=== PATIENT | male | born 1950 | race Caucasian/White ===

== ENCOUNTER 2017-08-04 05:53 | Day surgery (SDC) | payer OTHER, MEDICARE ==
[2017-08-04] MEDS ORDERED: ceFAZolin 2 GM/SWFI 2 GM/20 ML SYR IVP ONE (06:00)
[2017-08-04] MEDS ORDERED: LIDOCAINE 1% 2 ML INJ ID PRN (06:03)
[2017-08-04] MEDS ORDERED: LR 1,000 ML IV ONE (06:03)
[2017-08-04] MEDS ORDERED: PROPOFOL 200 MG/20 ML VIAL ONE ×2 (07:07)
[2017-08-04] MEDS ORDERED: fentaNYL 250 MCG/5 ML INJ ONE (07:07)
[2017-08-04] MEDS ORDERED: BUPIVACAINE/EPI 0.5% 30 ML SDV ONE (07:07)
[2017-08-04] MEDS ORDERED: DEXAMETHASONE 4 MG/ML VIAL ONE (07:11)
[2017-08-04] MEDS ORDERED: MIDAZOLAM 2 MG/2 ML VIAL IVP ONE (07:11)
[2017-08-04] MEDS ORDERED: SUGAMMADEX SODIUM 200 MG/2 ML VIAL IVP ONE (07:11)
[2017-08-04] MEDS ORDERED: ONDANSETRON 4 MG/2 ML VIAL ONE (07:11)
--- NOTE | 2017-08-04 07:13 | PDHPUP ---
History & Physical Update H&P update statement: This history and physical update is based on an assessment of the patient which was completed after admission or registration (within 24 hours), but prior to the surgery/procedure. H&P update: H&P reviewed & patient examined, no change in patient's condition since H&P completed
--- NOTE | 2017-08-04 07:22 | PDANEPAE ---
ANE History of Present Illness left inguinal hernia ANE Past Medical History - Cardiovascular History Hx Hypertension: No Hx Arrhythmias: No Hx Chest Pain: No Hx Coronary Artery / Peripheral Vascular Disease: No Hx CHF / Valvular Disease: No Hx Palpitations: No - Pulmonary History Hx COPD: No Hx Asthma/Reactive Airway Disease: No Hx Recent Upper Respiratory Infection: No Hx Oxygen in Use at Home: No Hx Sleep Apnea: No Sleep Apnea Screening Result - Last Documented: Negative - Neurologic History Hx Cerebrovascular Accident: No Hx Seizures: No Hx Dementia: No Neurologic History Comment: Strong family Hx of CVA, no personal Hx - Endocrine History Hx Diabetes: No - Renal History Hx Renal Disorders: No Renal History Comment: Kidney stones X 2 in 2004 and 2010 - Liver History Hx Hepatic Disorders: No - Neurological & Psychiatric Hx Hx Neurological and Psychiatric Disorders: No - Cancer History Hx Cancer: No - Congenital Disorder History Hx Congenital Disorders: No - GI History Hx Gastrointestinal Disorders: No - Other Health History Other Health History: Osteoarthritis in knees - Surgical History Prior Surgeries: appendectomy 2013. TURP 2011 ANE Review of Systems Review of Systems: - Exercise capacity METS (RN): 6 METS ANE Patient History - Allergies Allergies/Adverse Reactions: No Known Allergies Allergy (Unverified 11/19/13 10:24) - Home Medications Home medications: home medication list seen and reviewed Home Medications: Cholecalciferol (Vitamin D3) [Vitamin D3] 2,000 unit PO DAILY 11/19/13 [Last Taken 08/03/17 07:00] Magnesium Oxide [Magnesium Oxide 400 mg (OTC)] 400 mg PO DAILY 11/19/13 [Last Taken 08/03/17 07:00] RX: Herbals/Supplements -Info Only 1 each PO AD 11/19/13 [Last Taken 08/03/17 07 :00] Coq-10 08/03/17 [Last Taken 08/03/17 07:00] Fish Oil 1,000 mg Capsule 08/03/17 [Last Taken 08/03/17 0700] - NPO status NPO Since - Liquids (Date): 08/03/17 NPO Since - Liquids (Time): 20:00 NPO Since - Solids (Date): 08/03/17 NPO Since - Solids (Time): 18:00 - Smoking Hx Smoking Status: Former smoker - Family Anes Hx Family Hx Anesthesia Complications: NA ANE Labs/Vital Signs - Vital Signs Blood Pressure: 122/83 Heart Rate: 65 Respiratory Rate: 18 O2 Sat (%): 93 Height: 185.42 cm Weight: 97.069 kg ANE Physical Exam - Airway Neck exam: FROM Mallampati Score: Class 1 Mouth exam: normal dental/mouth exam - Pulmonary Pulmonary: no respiratory distress - Cardiovascular Cardiovascular: regular rate and rhythym - ASA Status ASA Status: II ANE Anesthesia Plan Anesthesia Plan: general endotracheal anesthesia
[2017-08-04] MEDS ORDERED: LR 500 ML IV PRN (08:14)
[2017-08-04] MEDS ORDERED: NALOXONE HCL 0.4 MG/ML INJ IVP PRN (08:14)
[2017-08-04] MEDS ORDERED: HYDROmorphONE/DILAUDID 1 MG/ML INJ IVP PRN (08:14)
[2017-08-04] MEDS ORDERED: HYDROCODONE/APAP 5/325 TAB PO PRN (08:14)
[2017-08-04] MEDS ORDERED: fentaNYL 100 MCG/2 ML INJ IVP PRN (08:14)
[2017-08-04] MEDS ORDERED: ONDANSETRON 4 MG/2 ML VIAL IVP PRN (08:14)
[2017-08-04] MEDS ORDERED: ACETAMINOPHEN 500 MG TAB PO PRN (08:14)
[2017-08-04] MEDS ORDERED: OXYCODONE/APAP 5/325 TAB PO PRN (08:14)
[2017-08-04] MEDS ORDERED: PROMETHAZINE HCL 25 MG/ML INJ IVP PRN (08:14)
[2017-08-04] MEDS ORDERED: ALBUTEROL 3 ML DEYVIAL IH PRN (08:14)
[2017-08-04] MEDS ORDERED: KETOROLAC 30 MG/1 ML SDV ONE (08:34)
[2017-08-04] MEDS ORDERED: PHENYLEPHRINE HCL 100 MCG/ML SYR ONE (08:37)
--- NOTE | 2017-08-04 08:50 | POSTANESTH ---
Post Anesthetic Evaluation Cardiovascular Status: Normal, Stable Respiratory Status: Normal, Stable Level of Consciousness/Mental Status: Can Participate in Eval Pain Control: Adequate, Prn Tx Ordered Nausea/Vomiting Control: Adequate, Prn Tx Ordered Complications Possibly Related to Anesthesia: None Noted
--- NOTE | 2017-08-04 08:56 | POSTOPPROG ---
Post Op Note Date of Operation: 08/04/17 Surgeon: Kam Kendall Rn Practitioner: Brea Montejo CFA Anesthesiologist: Marilin Anesthesia: GET(General Endotracheal) Pre-op Diagnosis: LIH Post-op Diagnosis: same Procedure: Robotic assisted left inguinal hernia repair with mesh Findings: large indirect defect Inf/Abcess present in the surg proc area at time of surgery?: No EBL: Minimal
[2017-08-04 09:24] VITALS: TEMP 98.1
[2017-08-04 10:14] VITALS: BP 106/62; PULSE 67; RESP 16; O2SAT 92
--- NOTE | 2017-08-04 14:26 | GOP ---
[f rep st] OPERATIVE REPORT DATE OF OPERATION: 08/04/2017 SURGEON: Kam Kendall MD [employer]PER[employer] SPECIALIST: Marga Montejo CFA ANESTHESIA: General endotracheal. ANESTHESIOLOGIST: Dr. Gaston PREOPERATIVE DIAGNOSIS: Symptomatic left inguinal hernia. POSTOPERATIVE DIAGNOSIS: Symptomatic left inguinal hernia. PROCEDURE PERFORMED: Robotic assisted laparoscopic left inguinal hernia repair with mesh. FINDINGS: Large indirect hernia, successfully reduced and repaired with Bard 3D Light large size mesh. SPECIMENS: None. ESTIMATED BLOOD LOSS: 5 cc. DESCRIPTION OF PROCEDURE: The patient was greeted in the preoperative suite. Once again, risks, benefits, and alternatives were discussed. Consent was signed. He was then brought back to the operative suite, placed on the OR table in a supine position. After all anesthesia machines, including SCDs, were on and functioning, a [employer] time-out was performed ending with all in agreement. After successful induction of general anesthesia , the patient's abdomen was prepped and draped in the typical sterile fashion. Antibiotics were given on-call to the operating room. I successfully entered the abdomen via a supraumbilical cutdown through which the Veress needle was passed. I achieved pneumoperitoneum to 15 mmHg CO2, which was well tolerated by the patient. Through this, I inserted a 5 mm Visiport. Once successfully in the abdomen, I inspected the viscera and noted no suspicious findings. I inserted 2 additional 8 mm trocars, 1 in the right and 1 in the left upper quadrant, both under direct visualization. I then upsized my supraumbilical port to an 8 as well. The patient was then placed in gentle Trendelenburg position and the robot was successfully docked. I turned my attention toward the patient's left lower quadrant where a preperitoneal plane was identified and made from just above the ASIS to the pubic tubercle. I created the plane and successfully dissected the moderate-sized indirect sac off the cord structures all the way down to the visceral sac. After the plane was appropriately placed, I inspected both the femoral direct and obturator spaces and noted no additional herniations. After this was done, I brought the mesh into the patient's abdomen and successfully tacked it to the pubic tubercle with 2 interrupted 2-0 Vicryl stitches and then a stitch on either side of the inferior epigastric vessels. I then closed the peritoneal cavity with a running 2-0 V-Loc suture. Pneumoperitoneum was then evacuated. I closed my port sites with running 4-0 Monocryl over which Dermabond was placed. The patient was then extubated and taken to the PACU in satisfactory condition. DRAINS: None. COUNTS: All counts were reported as correct x2. /[id number]/MODL MTDD
== END 2017-08-04 11:02 | disposition home or self-care (01) ==
LOC: FSGY 05:53
PROVIDERS: ATTEND Surgery
DX: K40.90 Unilateral inguinal hernia, without obstruction or gangrene, not specified as recurrent (principal); Z87.891 Personal history of nicotine dependence
CPT/HCPCS: C1781; J0690; J1100; J1885; J2250; J2370; J2405; J2704; J3010